=== PATIENT | female | born 1980 | race Caucasian/White ===

== ENCOUNTER 2016-12-04 06:08 | Day surgery (SDC) | payer OTHER ==
[2016-12-03 11:59] VITALS: BMI 31.8
--- NOTE | 2016-12-04 10:46 | HP ---
History & Physical Update - History History: No Change - Physical Physical: No Change - Assessment Assessment: No Change - Plan Plan: No Change (ILAN 2-3 on Colposcopy, for LEEP)
[2016-12-04] MEDS ORDERED: IBUPROFEN 800 MG/8 ML IJ IVPB PRN (11:07)
[2016-12-04] MEDS ORDERED: ACETAMINOPHEN 325 MG TABLET (FP) PO PRN (11:07)
[2016-12-04] MEDS ORDERED: LACTATED RINGERS SOLUTION 1,000 ML IV SCH ×2 (11:15→12:15)
[2016-12-04] MEDS ORDERED: MIDAZOLAM HCL 2 MG/2 ML SINGLE DOSE VIAL ONE (11:19)
[2016-12-04] MEDS ORDERED: SUCCINYLCHOLINE CHLORIDE 200 MG/10 ML VIAL ONE (11:21)
[2016-12-04] MEDS ORDERED: PROPOFOL 20 ML ONE ×2 (11:21)
[2016-12-04] MEDS ORDERED: FERRIC SUBSULFATE 500 ML BOTTLE TP ONE (11:40)
[2016-12-04] MEDS ORDERED: KETOROLAC TROMETHAMINE 30 MG/1 ML VIAL ONE ×2 (11:49→12:11)
[2016-12-04] MEDS ORDERED: DEXAMETHASONE SOD PHOSPHATE 4 MG/1 ML VIAL ONE (11:49)
[2016-12-04] MEDS ORDERED: ONDANSETRON 4 MG/2 ML VIAL ONE (11:49)
--- NOTE | 2016-12-04 12:01 | OP ---
Operative Note - Note: Operative Date: 12/04/16 (DICTATION NUMBER [id number]) Pre-Operative Diagnosis: cervical dysplasia Operation: LEEP cone biopsy Findings: normal female genital anatomy Post-Operative Diagnosis: Same as Pre-op Surgeon: Radha Godinez Anesthesiologist/REPAIR CLERK: Sarina Robin Anesthesia: General (with LMA) Specimens Removed: Cervical cone biopsy Estimated Blood Loss (mls): 10 Operative Report Dictated: Yes
[2016-12-04] MEDS ORDERED: ONDANSETRON 4 MG/2 ML VIAL IVPUSH PRN (12:12)
[2016-12-04] MEDS ORDERED: oxyCODONE HCL 5 MG TABLET PO PRN (12:12)
--- NOTE | 2016-12-04 12:39 | OP ---
DATE OF OPERATION: 12/04/2016 PREOPERATIVE DIAGNOSIS: Cervical dysplasia. POSTOPERATIVE DIAGNOSIS: Cervical dysplasia. PROCEDURE PERFORMED: Loop electrosurgical excision procedure, cone biopsy. SURGEON: Radha Godinez DO TELETYPESETTER OPERATOR: None. ANESTHESIA: LMA. ANESTHESIOLOGIST: Dr. Robin. COMPLICATIONS: None. ESTIMATED BLOOD LOSS: 10 mL. SPECIMEN: Include portions of cervical biopsy sent to Pathology for evaluation. DISPOSITION: Stable to PACU. BRIEF HISTORY AND PROCEDURE: The patient is a 36-year-old female who had been seen in the office and was diagnosed on colposcopy with ILAN 2-3 on a colposcopic biopsy. The patient was counseled on her options and signed consent for a LEEP cone biopsy procedure in the office. The patient was brought to the [facility] on December 05, 2016. Consents were reconfirmed. The patient was then taken back to the operating room where she was given LMA anesthesia by Dr. Robin. She was prepped and draped in the dorsal lithotomy position. Speculum was placed inside the vagina. The cervix was easily identified and using a large LEEP loop a specimen was taken from the anterior to the posterior cervix in 2 passes. The specimen was marked at the 6 and 12 o'clock positions and sent to Pathology for further evaluation. The surgical bed was cauterized with the lower ball cautery. Hemostasis was confirmed. A Monsel solution was applied. Hemostasis was achieved at the end of the procedure. All instruments were removed from the vagina. Counts were correct. The patient tolerated the procedure well and was recovering in stable condition in the PACU. RADHA GODINEZ DO /[id number]
[2016-12-04 14:36] VITALS: PULSE 58
[2016-12-04 14:37] VITALS: BP 112/68; TEMP 98.2
--- NOTE | 2016-12-05 16:23 | PATH ---
Surgical Pathology Report Patient Name: LATANYA CASTILLO [facility]. Rec. #: [id number] /Age/Gender: 1980 (Age: 36) / F Account: [id number] Location: [facility] SURGICAL Taken: 12/04/2016 Received: 12/04/2016 Reported: 12/05/2016 Physicians: Radha Godinez M.D. Specimen(s) Received A: LEEP CONE BIOPSY STITCH AT 12 'OCLOCK B: LEEP CONE BIOSY STITCH 6 O'CLOCK Clinical History Cervical dysplasia Final Diagnosis A. CERVIX, STITCH AT 12:00, LEEP CONE BIOPSY: CERVICAL SQUAMOUS AND ENDOCERVICAL MUCOSA WITH FOCAL LOW GRADE SQUAMOUS INTRAEPITHELIAL LESION (CERVICAL INTRAEPITHELIAL NEOPLASIA 1/ILAN 1) IN 9-12:00 QUADRANT. SURGICAL RESECTION MARGINS: NEGATIVE FOR DYSPLASIA. TRANSFORMATION ZONE: PRESENT. B. CERVIX, STITCH AT 6:00, LEEP CONE BIOPSY: CERVICAL SQUAMOUS AND ENDOCERVICAL MUCOSA WITH CHRONIC CERVICITIS. NO DYSPLASIA IDENTIFIED. TRANSFORMATION ZONE: FOCALLY IDENTIFIED. Electronically Signed Anthony Landa M.D. Gross Description A. Received in formalin labeled "LEEP cone biopsy," are 2 ordonez-pink, irregular portions of soft tissue measuring 1.7 x 0.5 x 0.3 cm and 2.1 x 1.6 x 0.7 cm. The larger portion displays a suture at the 12:00 aspect of the specimen, per the surgeon. The specimen is partially surfaced by ordonez-pink mucosa. The specimens are inked green and serially sectioned. The specimens are entirely submitted in 4 cassettes as follows: 1-3-larger portion of tissue sequentially submitted from 9:00 to 12:00 to 3:00; 4-separately received undesignated portion of tissue. B. Received in formalin labeled "LEEP cone biopsy," is a 2.4 x 0.7 x 0.5 cm ordonez-pink, irregular portion of soft tissue with a suture at the 6:00 aspect of the specimen, per the surgeon. The specimen is partially surfaced by ordonez-pink mucosa. The specimen is inked green, serially sectioned and entirely and sequentially submitted from 9:00 to 6:00 to 3:00 in 3 cassettes. 12/04/201612/04/2016
== END 2016-12-04 14:45 | disposition home or self-care (01) ==
LOC: JASU-SURG 06:08
PROVIDERS: ATTEND Obstetrics & Gynecology
PROC: 0UBC7ZX Excision of Cervix, Via Natural or Artificial Opening, Diagnostic (ICD-10-PCS; principal; 2016-12-04 11:00)
DX: N87.1 Moderate cervical dysplasia (principal)
CPT/HCPCS: 88307-TC; 94760

== ENCOUNTER 2017-03-05 08:18 | Emergency (ER) | payer OTHER ==
[2017-03-05 08:26] VITALS: BP 119/65; PULSE 96; TEMP 98; BMI 34.7
--- NOTE | 2017-03-05 09:32 | PDOC ---
History of Present Illness - General Chief Complaint: Injury Stated Complaint: INJURY Time Seen by Provider: 03/05/17 08:48 History Source: Patient Exam Limitations: No Limitations - History of Present Illness Initial Comments: 03/05/17 09:28 CHIEF COMPLAINT: Left ankle injury HISTORY OF PRESENT ILLNESS: Patient is a 36-year-old female, inversion injury to left ankle this a.m. Now unable to bear weight on left foot. Denies any other injury. Currently on menses, history of tubal ligation 03/05/17 09:31 Occurred: reports: this morning Severity: Yes: moderate Lower Extremity Pain Location: left: ankle Method of Injury: Yes: twisted Modifying Factors: improves with: None Lower Ext. Injury Location - Specific Injury Location Ankle: left pain, left swelling Extremity Pain Location - Extremity Pain Location Extremity Pain Locations: left: ankle Past History - Past Medical History Allergies/Adverse Reactions: Allergies Allergy/AdvReac Type Severity Reaction Status Date / Time No Known Allergies Allergy Verified 03/05/17 08:26 Home Medications: Ambulatory Orders NK [No Known Home Medication] 03/05/17 - Suicide/Smoking/Psychosocial Hx Smoking Status: No Smoking History: Never smoked Have you smoked in the past 12 months: No Number of Cigarettes Smoked Daily: 0 Hx Alcohol Use: No Drug/Substance Use Hx: No Substance Use Type: None Hx Substance Use Treatment: No Review of Systems - Review of Systems Constitutional: No: Symptoms Reported HEENTM: No: Symptoms Reported Respiratory: No: Symptoms reported Cardiac (ROS): No: Symptoms Reported ABD/GI: No: Symptoms Reported : No: Symptoms Reported Musculoskeletal: Yes: Joint Pain, Joint Swelling. No: Muscle Pain, Muscle Weakness, Neck Pain, Joint Stiffness Integumentary: Yes: Other (edema left lateral ankle). No: Bruising, Erythema Neurological: No: Symptoms reported, Paresthesia, Tingling, Tremors Hematologic/Lymphatic: No: Symptoms Reported All Other Systems: Reviewed and Negative *Physical Exam - Vital Signs Last Vital Signs Temp Pulse Resp BP Pulse Ox 98 F 96 H 18 119/65 100 03/05/17 08:23 03/05/17 08:23 03/05/17 08:23 03/05/17 08:23 03/05/17 08:23 - Physical Exam General Appearance: Yes: Appropriately Dressed. No: Apparent Distress Respiratory/Chest: positive: Lungs Clear, Normal Breath Sounds Extremity: positive: Swelling (left lateral ankle). negative: Pedal Edema, Erythema, Inflammation Integumentary: positive: Normal Color, Dry, Swelling. negative: Erythema, Ecchymosis, Bruising Neurologic: positive: Alert, Normal Mood/Affect, Normal Response, Motor Strength /5 ED Treatment Course - RADIOLOGY Radiology Studies Ordered: Category Date Time Status ANKLE & FOOT-LEFT* [RAD] Stat Radiology 03/05/17 08:49 Taken Medical Decision Making - Medical Decision Making 03/05/17 09:31 A/P: Patient here for evaluation of left lateral ankle injury, sent to x-ray to rule out acute fracture although low suspicion. 03/05/17 09:50 X-rays negative for acute fracture dislocation, patient with mild sprained Will apply Kedar wrap and Aircast, ice and elevate when at rest, follow-up with orthopedics if pain persists in one week I discussed the physical exam findings, ancillary test results and final diagnoses with the patient. I answered all of the patient's questions. The patient was satisfied with the care received and felt comfortable with the discharge plan and treatment plan. The patient will call to arrange follow-up and will return to the Emergency Department with any new, persistent or worsening symptoms. *DC/Admit/Observation/Transfer Diagnosis at time of Disposition: Ankle sprain Qualifiers: Encounter type: initial encounter Involved ligament of ankle: unspecified ligament Laterality: left Qualified Code(s): S93.402A - Sprain of unspecified ligament of left ankle, initial encounter; S93.402A - Sprain of unspecified ligament of left ankle, initial encounter - Discharge Dispostion Disposition: HOME Condition at time of disposition: Good Admit: No - Referrals Referrals: Robert Snider MD [Primary Care Provider] - - Patient Instructions Printed Discharge Instructions: DI for Ankle Sprain Additional Instructions: 1. Please return to the emergency department with any redness, swelling, increased pain, or any other concerns. 2. Keep splint on for comfort 3. Please follow up in the office of Dr. acharya within a week if pain persists. 4. No weightbearing when possible 5. Ice and elevate when at rest. 6. [id number] Motrin for pain, may take 600 mg by mouth every 8 hours - Post Discharge Activity Forms/Work/School Notes: Back to Work
[2017-03-05] MEDS ORDERED: IBUPROFEN 400 MG TABLET (FP) PO ONE ×2 (10:03→10:04)
== END 2017-03-05 10:22 | disposition home or self-care (01) ==
LOC: JERFT 08:18
PROC: 2W3RX1Z Immobilization of Left Lower Leg using Splint (ICD-10-PCS; principal; 2017-03-05)
DX: S93.402A Sprain of unspecified ligament of left ankle, initial encounter (principal); W01.0XXA Fall on same level from slipping, tripping and stumbling without subsequent striking against object, initial encounter; Y93.89 Activity, other specified; Y92.89 Other specified places as the place of occurrence of the external cause; Y99.8 Other external cause status
CPT/HCPCS: 73610-TC-LT; 73630-TC-LT; 99281-25